=== PATIENT | male | born 1980 | race Caucasian/White ===

== ENCOUNTER 2019-08-03 12:32 | Emergency (ER) | payer MEDICAID, OTHER ==
[~2019-08-03] VITALS: Ht 165.1 cm; Wt 62.0 kg
[~2019-08-03 12:32] MED LIST: TRAM50TA2 PO
[2019-08-03 12:46] VITALS: BP 104/69
[2019-08-03] MEDS ORDERED: DOXY100C43 PO (13:12)
== END 2019-08-03 13:25 | disposition home or self-care (01) ==
LOC: ER 12:32
DX: L73.9 Follicular disorder, unspecified (principal); I25.10 Atherosclerotic heart disease of native coronary artery without angina pectoris; I50.9 Heart failure, unspecified; Z79.899 Other long term (current) drug therapy
CPT/HCPCS: 99283